=== PATIENT | female | born 1955 | race Caucasian/White ===

== ENCOUNTER 2016-04-06 11:14 | Day surgery (SDC) | payer OTHER ==
--- NOTE | 2016-04-06 08:27 | HP ---
DATE OF CLINIC: 03/31/2016 HILDA TRAORE : 1955 PLANNED PROCEDURE: Left Long Trigger Finger Release DATE OF SURGERY: April 06, 2016 SURGEON: Julio César Silverman M.D. HISTORY OF PRESENT ILLNESS Hilda Traore is a 61 year old female. * Medication list reviewed with patient allergy list reviewed with patient. * Tried NSAIDS * Tried Injections * Has not tried Physical Therapy This is a 61-year-old female previously by Angelo Barry and myself for complaints of catching and triggering of her left long finger. She states that this has been going on for approximately 4 years, no discrete injury history. She does not have any triggering of any other digits. She has never had surgery or injury on this figure. She rates her pain a 1/10, but states that the finger triggers almost every day and it is painful, even when it is not actually catching. She has had injections times two with good relief, but full recurrence of her symptoms. She is interested in pursuing surgical intervention and after discussion and review of treatment options, both operative and non-operative, she has elected to proceed with trigger release of the long finger and presents today preoperatively. PAST MEDICAL AND SURGICAL HISTORY: Are as documented in her chart. CURRENT MEDICATION * ALPRAZolam 1 MG Tablet as needed 1 ta po 1 hour before flying. Pt states will occasionally use if unable to sleep. Very seldomly uses for sleep, 0 days, 0 refills * Aspir-Low 81 MG TBEC, once a day 0 days, 0 refills * CloNIDine HCl 0.1 MG Tablet 1 twice a day. Due for follow up., 30 days, 2 refills * [facility] Probiotic Capsule GUMMIES1 every 3rd day, 0 days, 0 refills * [facility] Stool Softener 100 MG Capsule as needed 1 every night prn, 0 days, 0 refills * EQ Ibuprofen 200 MG Tablet as directed 0 days, 0 refills * EQL [place] 3 Fish Oil 1200 MG Capsule 1 once a day 360mg omega-3, 0 days, 0 refills * Estrace 0.1 MG/GM Cream once a week apply once a week vaginally, 0 days, 0 refills * Famotidine 20 MG Tablet once a day IN AM, 90 days, 1 refills * Flonase Allergy Relief 50 MCG/ACT Suspension as directed 2 sprays each nostril once daily, 30 days, Prescribe As Needed. * Fluticasone Propionate 50 MCG/ACT Suspension 2 sprays each nostril every day, 30 days, 1 refills * Gabapentin 300 MG Capsule as directed 2 caps po TID, 0 days, 0 refills * Gabapentin 300 MG Capsule 2 three times a day, 90 days, 1 refills * Glucosamine Chondroitin Complx Tablet with Vitamin D- triple strength every other 3rd day, 0 days, 0 refills * Herpecin-L Miscellaneous as needed 0 days, 0 refills * Loratadine 10 MG TABS, once a day 0 days, 0 refills * Meclizine HCl 25 MG Tablet Chewable 1 twice a day IN AM and afternoon (3pm), 0 days, 0 refills * PARoxetine HCl 30 MG Tablet 1 once a day IN AM, 90 days, 1 refills * Pseudoephedrine HCl 30 MG Tablet four times a day prn congestion; [place] JumpIn, 10 days, 3 refills * Refresh Optive Advanced 0.5-1-0.5 % Solution 1 twice a day 0 days, 0 refills * SUMAtriptan Succinate 50 MG Tablet as needed PRN for migraines, 0 days, 0 refills * Tolnaftate 1 % Cream as directed Applies topically on feet once a day, 0 days, 0 refills * Transderm-Scop 1 MG/3DAYS Patch 72 Hour 1.5MGApply 1 patch every 3rd day as directed, 0 days, 0 refills * Triamterene-HCTZ 37.5-25 MG Tablet once a day In AM, 0 days, 0 refills * Womens Multivitamin Plus Tablet as directed Takes1 tab every 3 days, 0 days, 0 refills * Xiidra 5 % Solution 1 twice a day 0 days, 0 refills PAST MEDICAL/SURGICAL HISTORY Reported: Medical: Stomach problems, Reported numbness, Reported tingling, and Anemia. Surgical / Procedural: Prior surgery Septo turbinplasty, Right foot ganglion x 2 1988, Right wrist ganglion sx 1981 Laparscopic toupet fundoplication and pylorosplasty. 2008. SOCIAL HISTORY Behavioral: Caffeine use Avg 2 cups coffee or tea daily and non-smoker never smoked. Smoking status: Never smoker. Alcohol: Alcohol use Avg 1-2 drinks weekly. Home Environment: Lives alone and with spouse. Patient with h/o mass excision to rt foot times 2 and left wrist ganglion. ALLERGIES * Amoxicillin * ChloraPrep One Step Reaction: Skin Rashes/Hives * Codeine Reaction: Nausea/Vomiting/Diarrhea * Dust Mites * Iodine Reaction: Skin Rashes/Hives * penicillin Reaction: Skin Rashes/Hives * Percocet (Intolerance) Reaction: Nausea/Vomiting/Diarrhea * Tree Pollen REVIEW OF SYSTEMS No recent constitutional symptoms to include fevers and chills. No recent cardiovascular symptoms to include chest pain or palpitations. No recent respiratory symptoms to include shortness of breath or recent infections. PHYSICAL FINDINGS * Vitals taken 03/31/2016 11:49 am BP-Sitting L 128/84 mmHg BP Cuff Size Regular Pulse Rate-Sitting 84 bpm Temp-Oral 98.2 F Height 64.5 in Weight 200 lbs Body Mass Index 33.8 kg/m2 Body Surface Area 1.97 m2 Pain Level 2 Ears, Nose, Throat: * ENT: normal. Lungs: * Clear to auscultation. Cardiovascular: Heart Rate And Rhythm: * Normal. Abdomen: * Normal. Neurological: Motor: * Dominant Hand = Right Hand. * Dominant Hand = Left Hand. Patient is a well-developed, well-nourished female in no acute distress. They are awake, alert and conversant throughout the encounter. CARDIOVASCULAR: Intact peripheral pulses on bilateral upper extremities. No significant edema on inspection of bilateral upper extremities. NEUROLOGIC: Patient had intact coordinated composite motion of the bilateral upper extremities and sensation intact to light touch in all distributions of bilateral upper extremities. PSYCHIATRIC: Patient was oriented to person, place and time and displayed appropriate mood and affect during the encounter. SKIN: Exam of the skin on bilateral upper extremities showed no significant scars, lesions, rashes or masses. FOCUSED MUSCULOSKELETAL EXAM: The patient has a normal resting station of the bilateral shoulders, elbows and wrists. 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 On her left hand she has tenderness to palpation over the flexor tendon to her long finger. She has a palpable mass at the level of the A1 bakari. She has grade 2 triggering on clinical exam today. She has intact sensation and perfusion to the finger. She has a full composite fist with no evidence of instability of any of the digits. She does have a flexion contracture of her distal interphalangeal joint on this same digit. She is neurologically intact in the radial, ulnar, median, AIN and PIN distributions and the hand is warm and well perfused. TESTS * Test: CBC NO DIFF Report Date: 03/31/2016 WBC 5.2 10*3/mL MCV 87.1 fL RBC 4.89 10*6/uL MCH 28.8 pg MCHC 33.1 g/dL RDW 12.2 % PLATELET COUNT 255 10*3/mL HCT 42.6 % HGB 14.1 g/L * Test: COMPREHENSIVE METABOLIC PANEL Report Date: 03/31/2016 ALT/SGPT 21 U/L ALBUMIN 4.2 g/dL ALB/GLOB RATIO 2.0 BUN 15 mg/dL BUN/CREAT RATIO 17 CALCIUM 9.4 mg/dL GLUCOSE 143 mg/dL High CREATININE 0.9 mg/dL SODIUM 139 meq/L POTASSIUM 4.0 meq/L CHLORIDE 106 meq/L CARBON DIOXIDE 27 meq/L ANION GAP 10 meq/L TOT PROTEIN 6.3 g/dL Low GLOBULIN 2.1 g/dL Low BILI,TOTAL 0.5 mg/dL AST/SGOT 21 U/L ALK PHOSPHATASE 70 U/L GFR 63 IMAGING 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 There are no notable osseous bodies at the level of her MCP joint or the A1 bakari. ASSESSMENT A 61-year-old left-hand dominant female with left long finger triggering which has failed to adequately respond to a course of non-operative measures. THERAPY * Patient not eligible for fall risk assessment. PLAN * Trigger finger, left middle finger Hydrocodone-Acetaminophen 5-325 MG TABS, 1 every 4 - 6 hours as needed, 14 days, 0 refills * OTHER Dilaudid 2 MG TABS, 1 every 4 - 6 hours as needed, 14 days, 0 refills CARE TEAM Kirk Martinez MD Family Practice SURGICAL CONSENT We have discussed surgical options including left long trigger finger release and non-operative management. The patient was counseled in detail regarding the diagnosis, treatment options available, prognosis of each treatment option and the potential risks and complications. The risks of surgery include, but are not limited to, anesthetic , neurovascular complications, pulmonary embolism, deep vein thrombosis, wound dehiscence, failure of any or all of the discussed procedures, infection of the joint or surrounding soft tissue, need for revision surgery, chronic pain, limitations in activities of daily living, inability to return to work, and loss of normal range of motion or functional use of the extremity. There is the possibility of failure over time that may require additional operative or non-operative treatment. The patient acknowledged that there are a number of perioperative risks not mentioned here and would still like to proceed. The patient is aware of and understands these risks, and wishes to proceed with the proposed surgical procedure and other procedures as indicated at the time of surgery. We will have the patient see their PCP for a preoperative medical risk assessment. The preoperative instructions were reviewed with the patient and all questions were answered. PB/sg
[2016-04-06] MEDS ORDERED: LACTATED RINGERS 1,000 ML ONE (11:29)
[2016-04-06] MEDS ORDERED: IV START KIT ONE (11:29)
[2016-04-06] MEDS ORDERED: SODIUM CHLORIDE 0.9% FLUSH 10 ML ONE (11:30)
[2016-04-06] MEDS ORDERED: CLINDAMYCIN 600 MG PREMIX 50 ML IV ONE (11:30)
[2016-04-06] MEDS ORDERED: CLINDAMYCIN 600 MG PREMIX 50 ML IV PRN (12:40)
[2016-04-06] MEDS ORDERED: PROPOFOL 20 ML IV ONE (12:46)
[2016-04-06] MEDS ORDERED: MIDAZOLAM HCL 1 MG/ML 2ML VIAL ONE (12:46)
[2016-04-06] MEDS ORDERED: FENTANYL 100 MCG/2 ML VIAL ONE (12:46)
[2016-04-06] MEDS ORDERED: LIDOCAINE 0.5% (PRES FREE) 50 ML VIAL ONE (13:18)
[2016-04-06] MEDS ORDERED: BUPIVACAINE 0.5% (PRES FREE) 30 ML VIAL ONE (13:31)
--- NOTE | 2016-04-06 14:41 | PCMBPN ---
Brief Post Op Note: Date of Procedure: 04/06/16 Start Time: 1420 Preoperative Diagnosis: 1. left long finger trigger Postoperative Diagnosis: 1. Same Procedure: left long finger trigger release Surgeon: Julio César Silverman MD Assist: none Anesthesia: Gely Ayon Findings: as above Condition: stable to PACU Complications: none IV Fluids: 1200 mLs of LR Urine Output: 0 mLs Estimated Blood Loss: 1 mLs Tourniquet Time: 30 min at 250 mm Hg (Calos block) Specimens: none Implants: none Drains: none Julio César Silverman MD
[2016-04-06] MEDS ORDERED: LACTATED RINGERS 1,000 ML IV SCH (15:00)
[2016-04-06] MEDS ORDERED: HYDROMORPHONE HCL 1 MG/ML SYRINGE IV PRN (15:00)
[2016-04-06] MEDS ORDERED: ONDANSETRON 4 MG/2ML 2 ML VIAL IV PRN (15:00)
[2016-04-06] MEDS ORDERED: ACETAMINOPHEN 325 MG TABLET PO PRN (15:00)
[2016-04-06] MEDS ORDERED: DIPHENHYDRAMINE HCL 50 MG/1 ML VIAL IV PRN (15:00)
[2016-04-06] MEDS ORDERED: OXYCODONE/ACETAMINOPHEN 5/325 MG TABLET PO PRN (15:00)
--- NOTE | 2016-04-07 09:16 | OP ---
Namita SMITH : 1955 [id number] DATE OF PROCEDURE: April 06, 2016 PREOPERATIVE DIAGNOSIS: Left long finger triggering. POSTOPERATIVE DIAGNOSIS: Left long finger triggering. PROCEDURE PERFORMED: LEFT LONG FINGER TRIGGER RELEASE. SURGEON: Julio César Silverman M.D. BARMAID: None. ANESTHESIA: By Jessica TorresRIsaiasNGilma SPECIMENS: No material was sent to the laboratory. ESTIMATED BLOOD LOSS: 1 mL. FLUIDS REPLACED: 1200 mL crystalloid. TOURNIQUET TIME: 30 minutes at 250 mmHg for a Calos block. IMPLANTS: None. DRAINS: None. INDICATIONS: This is a 61-year-old right hand dominant female with a left long finger trigger which has been recalcitrant to nonoperative measures. Please see preoperative H&P for additional details. The patient was offered surgical intervention in order to restore normal function to her finger. Risks, benefits culture this were discussed at length and she elected to proceed. DESCRIPTION OF PROCEDURE: The patient was identified in the preoperative holding area where she was marked with an indelible marker and she was taken to the operating room where she was placed in the supine position on the operating room table. Perioperative antibiotics were administered. A well padded pre-calibrated nonsterile tourniquet was placed on her left upper arm. A final operative time out was performed and performed by and confirmed by all members of the operative team. The arm was elevated and exsanguinated using an Esmarch bandage and the tourniquet inflated to 250 mmHg. Lidocaine was installed into the veins of her left arm using the IV in the back of her. The intravenous line was then removed and the arm was prepped and draped for a surgery. A transverse incision was at the palmar flexion crease overlying the long finger and dissection was carried down identifying the proximal and distal aspects of the A1 bakari as well as the radial and ulnar digital neurovascular bundles. The bundles were protected while the bakari was sharply divided using a push cut technique with tenotomy scissors. The tendons were delivered out through the incision and finger was manually flexed. There is no residual triggering noted on full extension of the digit. The wound was copiously irrigated with sterile saline, closed with two horizontal mattress sutures; 5 mL of 0.5% Marcaine was injected around the incision for postoperative analgesia. A sterile dressing was applied using Xeroform, fluffs, Danny and an DALLIN bandage. The tourniquet was deflated at 30 minutes, the drapes were removed. The patient was awakened from her sedation that she was transferred to a stretcher and taken postoperatively to the postanesthesia care unit in stable condition. There were no observed intraoperative complications during this procedure. Job [id number] Cc: [facility]
== END 2016-04-06 15:35 | disposition home or self-care (01) ==
LOC: SDC 11:14
PROVIDERS: ATTEND Orthopaedic Surgery
PROC: 0LN80ZZ Release Left Hand Tendon, Open Approach (ICD-10-PCS; principal; 2016-04-06)
DX: M65.332 Trigger finger, left middle finger (principal); Z79.82 Long term (current) use of aspirin; D64.9 Anemia, unspecified; Z88.0 Allergy status to penicillin; Z88.1 Allergy status to other antibiotic agents; Z88.5 Allergy status to narcotic agent; Z88.8 Allergy status to other drugs, medicaments and biological substances